=== PATIENT | female | born 1990 | race Caucasian/White ===

== ENCOUNTER 2017-01-31 10:59 | Emergency (ER) | payer SELFPAY ==
[2017-01-31] MEDS ORDERED: ZYRTEC10 M7 PO (11:10)
[2017-01-31] MEDS ORDERED: PRISTIQ ER100 MG PO (11:10)
[2017-01-31] MEDS ORDERED: BIRTH CONTROL IMPLAN (11:11)
[2017-01-31 11:44] LABS: URINE BILIRUBIN NEGATIVE (NEG); URINE BLOOD SMALL (NEG); URINE GLUCOSE (UA) NEGATIVE (NEG); URINE KETONE NEGATIVE (NEG); URINE LEUKOCYTE ESTERASE NEGATIVE (NEG); URINE NITRITE NEGATIVE (NEG); URINE PROTEIN NEGATIVE (NEG); URINE SPECIFIC GRAVITY 1.025 (1.003-1.030)
[2017-01-31 11:49] LABS: URINE APPEARANCE CLEAR; URINE COLOR YELLOW
[2017-01-31 11:58] LABS: URINE BACTERIA 1+; URINE WBC RARE /[HPF] (0-5)
[2017-01-31 12:12] LABS: BASO % 0.1 % (0-2); HCT-HEMATOCRIT 39.5 % (34.0-49.0); HGB-HEMOGLOBIN 13.1 gm/dl (12.0-15.5); IMMATURE GRANULOCYTES ABSOLUTE 0.01 tho/cmm (0-0.03); IMMATURE GRANULOCYTES PERCENT 0.1 % (0-0.3); LYMPH % 15.8 % (20-45); LYMPH ABSOLUTE COUNT 1.9 tho/cmm (0.8-4.5); MCH (MEAN CORPUSCULAR HGB) 27.6 pg (28.0-32.0); MCHC MEAN CORPUSCULAR HGB CONC 33.2 % (32.0-36.0); MCV (MEAN CELL VOLUME) 83.3 fl (82.0-96.0); MONO % 5.6 % (0-12); MONOCYTE ABSOLUTE COUNT 0.7 tho/cmm (0.0-1.2); NEUTROPHIL ABSOLUTE COUNT 9.5 tho/cmm (1.6-8.0); NEUTROPHIL-AUTOMATED 9.5 tho/cmm (1.6-8.0); NEUTROPHILS % 78.4 % (40-80); PLATELET COUNT 240 tho/cmm (150-450); RED BLOOD COUNT 4.74 mil/cmm (4.00-5.20); RED CELL DISTRIBUTION WIDTH 13.3 % (12.4-16.4); WHITE BLOOD COUNT 12.1 tho/cmm (4.0-10.0)
[2017-01-31 12:23] LABS: ALB/GLOB RATIO 0.7 (0.8-2.0); ALBUMIN 3.4 g/dl (3.5-5.0); ALKALINE PHOSPHATASE 80 U/L (33-138); ALT/SGPT 72 U/L (12-78); BILIRUBIN,TOTAL 0.8 mg/dl (0-1.5); BLOOD UREA NITROGEN 12 mg/dl (6-24); CALCIUM 8.8 mg/dl (8.5-10.5); CARBON DIOXIDE-VENOUS 25 mmol/L (22-32); CHLORIDE 105 mmol/l (96-110); CREATININE 0.86 mg/dl (0.50-1.10); GLUCOSE 99 mg/dL (70-110); LIPASE 142 U/L (73-393); SODIUM 142 mmol/L (135-145); eGFR VALUE FOR BLACK >90 mL/Min
[2017-01-31 12:25] LABS: ANION GAP 16 mmol/L (0-20); AST/SGOT 105 U/L (10-40); POTASSIUM 4.2 mmol/L (3.7-5.1)
[2017-01-31 12:26] LABS: PREGNANCY-SERUM NEGATIVE (NEGATIVE)
[2017-01-31] MEDS ORDERED: ZOFRAN4 M2 PO (14:01)
[2017-01-31] MEDS ORDERED: PERCOCET 5-3251 EACH PO (14:01)
[2017-02-11] MEDS ORDERED: PRISTIQ ER100 MG PO (13:06)
[2017-02-11] MEDS ORDERED: VITAMIN D10000 UNI1 PO (13:07)
[2017-02-11] MEDS ORDERED: PERCOCET 5-3251 EACH PO (13:14)
[2017-02-11] MEDS ORDERED: ZOFRAN4 M2 PO (13:15)
== END 2017-01-31 14:15 ==
LOC: EDMED 10:59
PROVIDERS: Physician Assistant
DX: K80.20 Calculus of gallbladder without cholecystitis without obstruction (principal); Z87.19 Personal history of other diseases of the digestive system; Z90.89 Acquired absence of other organs; Z98.890 Other specified postprocedural states
CPT/HCPCS: J2270; J2405; J7030

== ENCOUNTER 2017-02-13 08:36 | Day surgery (SDC) | payer SELFPAY ==
[~2017-02-13 08:36] MED LIST: BIRTH CONTROL IMPLAN; PERCOCET 5-3251 EACH PO; PRISTIQ ER100 MG PO; VITAMIN D10000 UNI1 PO; ZOFRAN4 M2 PO; ZYRTEC10 M7 PO
== END 2017-02-13 17:17 ==
LOC: SRG 08:36 → SHSB 08:39 → ORW 13:02 → PACU 14:04 → SHSB 15:22
PROC: 0FT44ZZ Resection of Gallbladder, Percutaneous Endoscopic Approach (ICD-10-PCS; principal; 2017-02-13)
DX: K80.20 Calculus of gallbladder without cholecystitis without obstruction (principal); E66.01 Morbid (severe) obesity due to excess calories; R20.2 Paresthesia of skin; F41.9 Anxiety disorder, unspecified; F32.9 Major depressive disorder, single episode, unspecified; Z68.41 Body mass index [BMI] 40.0-44.9, adult; Z79.3 Long term (current) use of hormonal contraceptives; Z79.899 Other long term (current) drug therapy; Z91.038 Other insect allergy status; Z88.5 Allergy status to narcotic agent; Z88.6 Allergy status to analgesic agent; Z90.89 Acquired absence of other organs; Z98.890 Other specified postprocedural states
CPT/HCPCS: J0690; J1170; J2405; J2550; J3010; J7030